=== PATIENT | male | born 1950 | race Caucasian/White ===

== ENCOUNTER → 2020-06-15 08:42 | Outpatient (BNVA) | payer MEDICARE, OTHER, SELFPAY | PROVIDERS: Family Provider Nurse Practitioner Family; PCP Nurse Practitioner Family; Referring Provider Nurse Practitioner Family; Visit Provider Urology | DX: R35.8 Other polyuria (principal); N42.89 Other specified disorders of prostate; Z12.5 Encounter for screening for malignant neoplasm of prostate | CPT/HCPCS: 81003 ==

== ENCOUNTER → 2021-03-29 10:53 | Outpatient (BNVA) | payer MEDICARE, OTHER, SELFPAY | PROVIDERS: Family Provider Nurse Practitioner Family; PCP Nurse Practitioner Family; Visit Provider Internal Medicine | DX: Z20.822 Contact with and (suspected) exposure to COVID-19 (principal); Z12.5 Encounter for screening for malignant neoplasm of prostate; Z12.11 Encounter for screening for malignant neoplasm of colon | CPT/HCPCS: 87635 ==

== ENCOUNTER 2021-04-04 07:24 | Day surgery (SDC) | payer MEDICARE, OTHER, SELFPAY ==
[2021-03-29 11:15] VITALS: BMI 30.9
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
[2021-04-04 08:10] VITALS: BP 152/93; PULSE 66; RESP 16; TEMP 36.8; O2SAT 100
[2021-04-04] MEDS: sodium chloride 0.9% 1,000 ML 30 ML IV (08:20)
[2021-04-04 09:22] VITALS: BP 130/85; PULSE 72; RESP 14; TEMP 36.1; O2SAT 92
--- NOTE | 2021-04-04 09:39 | P.HP_ITS ---
Same Day Surgery H&P Indication for Procedure/HPI DATE OF PROCEDURE: April 04, 2021 CHIEF COMPLAINT/INDICATIONFOR SURGICAL PROCEDURE: Screening PREOP DIAGNOSIS: Screening PLANNED PROCEDRUE: Operation Date: 04/04/21 08:30 Proposed Procedures p Colonoscopy Z12.11(Not Applicable) - Theodore Askew MD Medications/Allergies* Home Medications Medication Instructions Recorded Confirmed Type ARCTIC MONICA OIL PO DAILY 06/15/20 01/24/21 History ARTHROZONE PO DAILY 06/15/20 01/24/21 History Ca 600 mg-D3 800 unit-magnes 40 1 tab PO DAILY 06/15/20 03/29/21 History ua-onxh-pgd-hunter-boron chewable tablet ascorbic acid (vitamin C) 100 mg 100 mg PO DAILY 06/15/20 03/29/21 History tablet aspirin 81 mg tablet,delayed 81 mg PO .QOD tab 06/15/20 03/29/21 History release mecobalamin (vitamin B12) 5,000 5,000 mcg PO DAILY tab 06/15/20 03/29/21 History mcg disintegrating tablet melatonin 5 mg capsule 5 mg PO .HS cap 06/15/20 03/29/21 History rmydtvxz-qyt-vwvcr acid 300 1 tab PO .QOD tab 06/15/20 03/29/21 History mcg-lycopene 600 mcg-lutein 300 mcg tablet Allergies/Adverse Reactions Allergy/AdvReac Type Severity Reaction Status Date / Time No Known Allergies Allergy Verified 04/04/21 08:08 Current Medications: Generic Name Dose Route Start Last Admin Trade Name Freq PRN Reason Stop Dose Admin Sodium Chloride 1,000 mls @ 30 mls/hr 04/04/21 07:30 04/04/21 08:20 Sodium Chloride 0.9% IV 30 mls/hr .Q24H CALI Administration Pertinent History/Comorbid Conditions* Medical History (Updated 07/19/20 @ 14:23 by Theodore Askew MD) Polyuria Prostate asymmetry Surgical History (Updated 06/15/20 @ 09:31 by Zack Morfin MD) H/O vasectomy History of dental surgery WISDOM TEETH EXTRACTION Family History (Updated 06/15/20 @ 08:56 by Lacy Webster LPN) Father, AT AGE 86 Mother, AT AGE 93 Alzheimer's dementia Mother Dementia Mother FATHER AGE 86 UNKNOWN CAUSE Cancer Brother HODGKIN'S Social History Smoking and tobacco status: former smoker Alcohol intake: never Marital status: Current occupational status: employed Current occupation: [employer]ER AND [employer] History of recent travel: No Pertinent Exam Findings alert, oriented x 3, clear to auscultation bilaterally, regular rate & rhythm, operative site marked and procedure specific exam findings Recommendations Surgery/Procedure today Coding Level of Care Code Acute Manager Forms for Omar Yi
[2021-04-04 09:42] VITALS: BP 117/83; PULSE 79; RESP 16; O2SAT 95
--- NOTE | 2021-04-04 13:41 | ANE.PACU2 ---
Inpatient post-anesthesia follow up: Airway intact: Yes Vital signs: Temperature 97.0 F Pulse Rate 79 Respiratory Rate 16 Blood Pressure 117/83 Pulse Oximetry 95 Oxygen Delivery Me thod Room Air Oxygen Flow Rate 2 Fraction of Inspir ed Oxygen Hydration adequate: Yes Nausea and vomiting: No Pain level: 1 Mental status: Baseline Additional Comments: EMR review
== END 2021-04-04 09:55 | disposition home or self-care (01) ==
PROVIDERS: PCP Nurse Practitioner Family; Visit Provider Internal Medicine
PROC: 0DJD8ZZ Inspection of Lower Intestinal Tract, Via Natural or Artificial Opening Endoscopic (ICD-10-PCS; CPT 45378; principal; 2021-04-04 08:30)
DX: Z12.11 Encounter for screening for malignant neoplasm of colon (principal); K57.30 Diverticulosis of large intestine without perforation or abscess without bleeding; Z87.891 Personal history of nicotine dependence; Z79.82 Long term (current) use of aspirin
CPT/HCPCS: 96360; G0121; J2704; J7030

== ENCOUNTER → 2022-06-13 13:52 | Outpatient (BNVA) | payer MEDICARE, OTHER, SELFPAY | PROVIDERS: PCP Nurse Practitioner Family; Visit Provider Urology | DX: Z12.5 Encounter for screening for malignant neoplasm of prostate (principal) | CPT/HCPCS: G0103 ==

== ENCOUNTER → 2022-06-20 13:03 | Outpatient (BNVA) | payer MEDICARE, OTHER, SELFPAY | PROVIDERS: PCP Nurse Practitioner Family; Visit Provider Urology | DX: R97.20 Elevated prostate specific antigen [PSA] (principal); N42.89 Other specified disorders of prostate; R35.89 Other polyuria; Z12.5 Encounter for screening for malignant neoplasm of prostate | CPT/HCPCS: 51798; 81003; 99213 ==

== ENCOUNTER → 2022-08-29 11:15 | Outpatient (BNVA) | payer MEDICARE, OTHER, SELFPAY | PROVIDERS: PCP Nurse Practitioner Family; Visit Provider Nurse Practitioner Family | DX: Z86.007 Personal history of in-situ neoplasm of skin (principal); L57.0 Actinic keratosis; L82.0 Inflamed seborrheic keratosis; L81.4 Other melanin hyperpigmentation; L82.1 Other seborrheic keratosis; D36.14 Benign neoplasm of peripheral nerves and autonomic nervous system of thorax | CPT/HCPCS: 17000; 17003; 17110; 99213 ==

== ENCOUNTER → 2023-01-03 09:12 | Outpatient (BNVA) | payer MEDICARE, OTHER, SELFPAY | PROVIDERS: PCP Nurse Practitioner Family; Visit Provider Nurse Practitioner Family | DX: L57.0 Actinic keratosis (principal); D22.5 Melanocytic nevi of trunk; L21.8 Other seborrheic dermatitis; L91.8 Other hypertrophic disorders of the skin | CPT/HCPCS: 11200; 17000; 99214 ==

== ENCOUNTER → 2023-07-25 09:01 | Outpatient (BNVA) | payer MEDICARE, OTHER, SELFPAY | PROVIDERS: PCP Nurse Practitioner Family; Visit Provider Nurse Practitioner Family | DX: L57.0 Actinic keratosis (principal); L82.0 Inflamed seborrheic keratosis; D22.5 Melanocytic nevi of trunk; L21.8 Other seborrheic dermatitis; L81.4 Other melanin hyperpigmentation; L57.8 Other skin changes due to chronic exposure to nonionizing radiation; L02.426 Furuncle of left lower limb; L82.1 Other seborrheic keratosis; Z85.828 Personal history of other malignant neoplasm of skin | CPT/HCPCS: 10060; 17000; 17110; 99214 ==

== ENCOUNTER → 2023-07-26 10:39 | Outpatient (BNVA) | payer MEDICARE, OTHER, SELFPAY | PROVIDERS: PCP Nurse Practitioner Family; Visit Provider Nurse Practitioner Family | DX: Z68.30 Body mass index [BMI] 30.0-30.9, adult (principal) | CPT/HCPCS: 80053 ==

== ENCOUNTER → 2023-08-21 09:56 | Outpatient (BNVA) | payer MEDICARE, OTHER, SELFPAY | PROVIDERS: PCP Nurse Practitioner Family; Visit Provider Nurse Practitioner Family | DX: L02.426 Furuncle of left lower limb (principal) | CPT/HCPCS: 99214 ==

== ENCOUNTER → 2024-03-10 15:34 | Outpatient (BNVA) | payer MEDICARE, OTHER, SELFPAY | PROVIDERS: PCP Nurse Practitioner Family; Visit Provider Nurse Practitioner Family | DX: L73.8 Other specified follicular disorders (principal); L82.1 Other seborrheic keratosis; L81.4 Other melanin hyperpigmentation; L57.8 Other skin changes due to chronic exposure to nonionizing radiation; D22.5 Melanocytic nevi of trunk; Z08 Encounter for follow-up examination after completed treatment for malignant neoplasm; Z85.828 Personal history of other malignant neoplasm of skin; L57.0 Actinic keratosis | CPT/HCPCS: 17000; 99213 ==

== ENCOUNTER → 2025-03-10 10:56 | Outpatient (BNVA) | payer MEDICARE, OTHER, SELFPAY | PROVIDERS: Family Provider Nurse Practitioner Family; PCP Nurse Practitioner Family; Visit Provider Nurse Practitioner Family | DX: L73.8 Other specified follicular disorders (principal); L81.5 Leukoderma, not elsewhere classified; L57.8 Other skin changes due to chronic exposure to nonionizing radiation; L81.4 Other melanin hyperpigmentation; L82.1 Other seborrheic keratosis; D18.01 Hemangioma of skin and subcutaneous tissue; Z08 Encounter for follow-up examination after completed treatment for malignant neoplasm; Z85.828 Personal history of other malignant neoplasm of skin; L82.0 Inflamed seborrheic keratosis; L53.8 Other specified erythematous conditions; R20.8 Other disturbances of skin sensation; L29.89 Other pruritus | CPT/HCPCS: 17000; 17110; 99213 ==